=== PATIENT | female | born 1975 | race Caucasian/White ===

== ENCOUNTER 2018-09-10 13:36 | Emergency (ER) | payer OTHER ==
[~2018-09-10] VITALS: Ht 165.1 cm; Wt 78.1 kg
[2018-09-10 13:42] VITALS: RESP 16; Ht 165.1 cm; Wt 78.1 kg
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
[2018-09-10] MEDS ORDERED: IBUP-1542 PO (16:57)
[2018-09-10] MEDS ORDERED: BACL10TA PO (16:57)
[2018-09-10] MEDS ORDERED: IBUPROFEN 200 MG TAB PO ONE (17:00)
[2018-09-10] MEDS ORDERED: ACETAMINOPHEN 325 MG TAB PO ONE (17:00)
[2018-09-10 17:41] VITALS: BP 138/100; PULSE 72
== END 2018-09-10 17:43 | disposition home or self-care (01) ==
LOC: FTE 13:36
DX: M54.2 Cervicalgia (principal)
CPT/HCPCS: 72040; Z7502; Z7610